=== PATIENT | male | born 1995 | race African-American/Black ===

== ENCOUNTER 2018-05-27 07:41 | Emergency (ER) | payer MEDICAID ==
[~2018-05-27] VITALS: Ht 167.6 cm; Wt 65.3 kg
[2018-05-27 07:44] VITALS: Ht 167.6 cm; Wt 65.3 kg
[2018-05-27 08:50] VITALS: BP 110/87
== END 2018-05-27 08:50 | disposition home or self-care (01) ==
LOC: ED 07:41
DX: R10.32 Left lower quadrant pain (principal)
CPT/HCPCS: J1885